=== PATIENT | male | born 1940 | race Caucasian/White ===

== ENCOUNTER 2018-10-08 20:11 | Inpatient (IN) ==
[2018-10-08 20:34] LABS: URINE SOURCE CLEAN CATCH
[2018-10-08 20:36] LABS: BILIRUBIN URINE NEGATIVE (NEGATIVE); BLOOD URINE TRACE (NEGATIVE); COLOR YELLOW; GLUCOSE URINE NEGATIVE (NEGATIVE); KETONE URINE NEGATIVE (NEGATIVE); LEUKOCYTES URINE NEGATIVE (NEGATIVE); NITRITE URINE NEGATIVE (NEGATIVE); PH URINE 5.5; PROTEIN URINE TRACE mg/dL (NEGATIVE); SP GRAVITY URINE 1.021; TURBIDITY URINE CLEAR (CLEAR); UROBILINOGEN URINE 2 mg/dL (NORMAL)
[2018-10-08 20:38] LABS: UR EPITHELIAL CELLS <10 /HPF (<10); URINE BACTERIA NEGATIVE /HPF; URINE RBC <10 /HPF (<10); URINE WBC <10 /HPF (<10)
[2018-10-09] MEDS ORDERED: PERCOCET-5 PO ONE (01:04)
[2018-10-09 04:39] LABS: BASO# 0.04 X1000 (0.0-0.2); BASO% 0.4 % (0.0-0.8); EOS# 0.13 X1000 (0.0-0.7); EOS% 1.2 % (0.0-10.0); HEMATOCRIT 43.6 % (42.0-52.0); HEMOGLOBIN 14.6 g/dL (14.0-18.0); IMM GRAN# 0.03 X1000 (0.0-0.04); IMM GRAN% 0.3 % (0.0-0.5); LYMPH# 2.03 X1000 (1.2-3.4); LYMPH% 19.4 % (20.5-51.1); MCH 28.2 PG (27-31); MCHC 33.5 g/dL (33-37); MCV 84.3 FL (81-99); MONO# 0.89 X1000 (0.11-0.59); MONO% 8.5 % (1.7-9.3); NEUT# 7.35 X1000 (1.4-6.5); NEUT% 70.2 % (42.2-75.2); PLT 185 X1000 (130-400); RBC 5.17 XMIL (4.7-6.1); RDW 13.7 % (11.5-14.5); WBC 10.47 X1000 (4.8-10.8)
[2018-10-09 04:55] LABS: AGAP 13; ALB/GLOB RATIO 1.2; ALKALINE PHOSPHATASE 58 U/L (32-122); BUN 26 mg/dL (8-22); CHLORIDE 101 mmol/L (98-107); COSMO 283; ESTIMATED GFR > 60; GLUCOSE 105 mg/dL (70-104); GOT 17 U/L (10-34); GPT 17 U/L (10-44); POTASSIUM 3.8 mmol/L (3.5-5.1); SODIUM 139 mmol/L (136-145); TCO2 25 mmol/L (25-35); TOTAL BILIRUBIN 1.13 mg/dL (0.20-1.00); TOTAL PROTEIN 7.3 g/dL (6.3-8.3)
[2018-10-09] MEDS ORDERED: ZOFRAN ODT PO ONE (05:14)
[2018-10-09 05:41] LABS: SED RATE 5 mm/hr (0-15)
--- NOTE | 2018-10-09 07:11 | PROVIDER DOCUMENTATION ---
This chart was entered by Irma Chavez Scribe, acting as scribe for Sasha Hrenandez MD. HPI-Abdominal Pain/GI Problem - General Source: patient - History of Present Illness-ABD Nature of Presenting Problems: Pt sts that he has had R lower ABD pain for the past 3 days. nausea but no vomiting. hx of hernia repair. Pt has pacemaker as well. Abdominal Pain Onset Location: reports: RLQ, periumbilical Pain Radiation: reports: no radiation Quality of Pain: reports: aching Severity in ED: reports: moderate Onset/Duration: reports: 3 days ago Timing: reports: still present Activities at Onset: reports: none Exposure to sick contacts?: No Modifying Factors: improves with: nothing Associated Symptoms: reports: nausea. denies: anxiety, chest pain, constipation, cough, diarrhea, vomiting Last BM: unsure <Sasha Hernandez - Last Filed: 10/09/18 07:10> <Juany Blake - Last Filed: 10/09/18 08:53> - General Chief Complaint: Abdominal Pain Stated Complaint: MID-STOMACH PAIN Time Seen by Provider: 10/09/18 00:36 Allergies/Adverse Reactions: Patient Allergies Allergy/AdvReac Type Severity Reaction Status Date / Time sulfamethoxazole Allergy Mild RASH Verified 12/28/17 13:59 [From Bactrim] trimethoprim [From Bactrim] Allergy Mild RASH Verified 12/28/17 13:59 Home Medications: Home Medication List Medication Instructions Recorded Confirmed Last Taken Type Aspirin [Ecotrin] 1 tab PO HS 11/29/16 01/07/18 01/01/18 History Atorvastatin Calcium [Lipitor] 20 mg PO HS 11/29/16 01/07/18 01/06/18 History Clopidogrel Bisulfate [Plavix] 75 mg PO DAILY 11/29/16 01/07/18 01/01/18 History Losartan/Hydrochlorothiazide 1 tab PO DAILY 11/29/16 01/07/18 01/06/18 History [Losartan-Hctz 50-12.5 mg Tab] Amlodipine Besylate 5 mg PO DAILY 12/28/17 01/07/18 01/06/18 07:00 History Bisoprolol [Zebeta] 5 mg PO DAILY 12/28/17 01/07/18 01/06/18 07:00 History Levofloxacin 500 mg PO DAILY 12/28/17 01/07/18 2 Days Ago History ~01/05/18 Omeprazole 20 mg PO DAILY 12/28/17 01/07/18 01/07/18 07:00 History Tamsulosin [Flomax] 0.4 mg PO DAILY 12/28/17 01/07/18 2 Days Ago History ~01/05/18 Hydrocodone/Acetaminophen [Hawley 1 each PO Q4H PRN PRN #30 tablet 01/07/18 Unknown Rx 10-325 Tablet] Review of Systems - Adult - REVIEW OF SYSTEMS - ADULT Constitutional: denies: chills, fever Eyes: reports: no symptoms reported Ears, Nose, Mouth & Throat: reports: no symptoms reported Cardiovascular: reports: no symptoms reported Respiratory: reports: no symptoms reported Gastrointestinal: reports: abdominal pain, nausea. denies: diarrhea, vomiting Genitourinary: reports: no symptoms reported Musculoskeletal: reports: no symptoms reported Integumentary: reports: no symptoms reported Neurological: reports: no symptoms reported. denies: dizziness/vertigo, headache/migraines Psychiatric: reports: no symptoms reported Endocrine: reports: no symptoms reported Hematologic/Lymphatic: reports: no symptoms reported Allergic/Immunologic: reports: no symptoms reported All Other Systems: Reviewed and Negative <Sasha Hernandez - Last Filed: 10/09/18 07:10> Past History - Adult - PAST MEDICAL HISTORY-ADULT Review of Records: reports: Old Records Reviewed, Nursing Assessment Review, Medications Reviewed, Social history reviewed & non-contributory. Major Childhood Illnesses: reports: denies history Cardiovascular: reports: HTN Respiratory: reports: denies history Gastrointestinal: reports: denies history Obstetrical/Gynecological: reports: denies history Genitourinary: reports: denies history Musculoskeletal: reports: denies history Neurological: reports: denies history Psychiatric: reports: denies history Endocrine/Immune: reports: denies history Other Conditions: reports: denies history - PRIOR SURGERIES/PROCEDURES Surgical/Procedure History: reports: CABG, other (hernia repair) - IMMUNIZATION STATUS Childhood Immunizations: See Nurse Assessment Flu Vaccine: See Nurse Assessment - SOCIAL HISTORY Smoking: quit greater than 1 year Substance Use: none/never Alcohol Use Frequency: never Living Situation: family <Sasha Hernandez - Last Filed: 10/09/18 07:10> Physical Exam-General - PHYSICAL EXAM-ADULT Initial Vital Signs Reviewed: Yes - CONSTITUTIONAL General Appearance: appears well, alert, mild distress - EYES Eyes: PERRL/EOMI - HEAD, EARS, NOSE, MOUTH & THROAT HENMT: normocephalic/atraumatic, moist mucous membranes, normal ENT inspection - NECK Neck: non-tender, full range of motion, supple, normal inspection - RESPIRATORY Respiratory: lungs clear - CARDIOVASCULAR Cardiovascular: normal peripheral pulses, regular rate, rhythm, other (PACED) - GASTROINTESTINAL (ABDOMEN) Abdominal Exam: normal bowel sounds, soft, tenderness - LYMPHATIC Lymphatic: no adenopathy - MUSCULOSKELETAL Back Exam: normal inspection, no CVA tenderness, no vertebral tenderness Extremity: normal range of motion, non-tender, normal gait, normal inspection - SKIN Integumentary: normal color, warm/dry - NEUROLOGIC Neurologic: grossly normal - PSYCHIATRIC Psych/Mental Status: normal mood/affect, normal thought content, normal thought process, oriented x 3 <Sasha Hernandez - Last Filed: 10/09/18 07:10> Progress - PLAN OF CARE/RESULTS Progress/Plan/Lab Results: Vital Signs - 8 hr 10/08/18 20:16 10/08/18 23:53 Temperature 97.9 F Pulse Rate 61 58 L Respiratory Rate 18 18 Blood Pressure 145/91 123/83 O2 Sat by Pulse Oximetry 99 97 Laboratory Results - last 24 hr 10/08/18 20:30 Urine Source CLEAN CATCH Urine Color YELLOW Urine Turbidity CLEAR Urine pH 5.5 Ur Specific [place] 1.021 Urine Protein TRACE A Ur Glucose (Stick) NEGATIVE Ur Ketones (Stick) NEGATIVE Urine Blood TRACE A Urine Nitrite NEGATIVE Urine Bilirubin NEGATIVE Urobilinogen Dipstick 2 A Urine Leukocytes NEGATIVE Urine WBC (Auto) <10 Urine RBC (Auto) <10 U Epithel Cells (Auto) <10 Urine Bacteria (Auto) NEGATIVE Orders Category Date Time Status US ABDOMEN-COMPLETE [US] Stat Exams 10/09/18 01:02 Ordered CBC WITH ELECTRONIC DIFF [HEME] Stat Lab 10/09/18 00:36 Uncollected COMPREHENSIVE METABOLIC PANEL [CHEM] Stat Lab 10/09/18 00:36 Uncollected SED RATE [HEME] Stat Lab 10/09/18 01:04 Uncollected UA NIMS W/REFLEX CULT [URINALYSIS] Stat Lab 10/08/18 20:30 Completed Oxycodone/APAP 5 mg/325 mg [Percocet-5] Med 10/09/18 01:04 Discontinued 1 each PO NOW ONE Result Diagrams: 10/09/18 04:15 10/09/18 04:15 - REASSESSMENT Reassessment #1 Time Reassessed: 06:03 (called to for sbo vs ileus. Dr. Jordan coming to evaluate pt. ) - CHANGE OF SHIFT REPORT (ED Provider) 1 Report Given and Care Transferred to:: Dr. Blake Time of Transfer: 07:11 Items Pending: Physician Consult/Arrival (Dr. Jordan) <Sasha Hernandez - Last Filed: 10/09/18 07:10> - PLAN OF CARE/RESULTS Progress/Plan/Lab Results: Vital Signs - 8 hr 10/08/18 23:53 10/09/18 05:13 10/09/18 05:30 Pulse Rate 58 L Respiratory Rate 18 Blood Pressure 123/83 158/107 O2 Sat by Pulse Oximetry 97 98 93 L 10/09/18 06:20 Gastric Occult Blood - Final Emesis Laboratory Results - last 24 hr 10/08/18 10/09/18 10/09/18 20:30 04:15 04:15 WBC 10.47 RBC 5.17 Hgb 14.6 Hct 43.6 MCV 84.3 MCH 28.2 MCHC 33.5 RDW Std Deviation 13.7 Plt Count 185 MPV 11.0 H Immature Gran % (Auto) 0.3 Neut % (Auto) 70.2 Lymph % (Auto) 19.4 L Will % (Auto) 8.5 Eos % (Auto) 1.2 Baso % (Auto) 0.4 Immature Gran # (Auto) 0.03 Neut # (Auto) 7.35 H Lymph # (Auto) 2.03 Will # (Auto) 0.89 H Eos # (Auto) 0.13 Baso # (Auto) 0.04 ESR 5 Sodium 139 Potassium 3.8 Chloride 101 Carbon Dioxide 25 Anion Gap 13 BUN 26 H Creatinine 1.0 Estimated GFR/1.73 m2 > 60 BUN/Creatinine Ratio 26 Glucose 105 H Calculated Osmolality 283 Calcium 9.0 Total Bilirubin 1.13 H AST 17 ALT 17 Alkaline Phosphatase 58 Total Protein 7.3 Albumin 4.0 Globulin 3.3 Albumin/Globulin Ratio 1.2 Urine Source CLEAN CATCH Urine Color YELLOW Urine Turbidity CLEAR Urine pH 5.5 Ur Specific [place] 1.021 Urine Protein TRACE A Ur Glucose (Stick) NEGATIVE Ur Ketones (Stick) NEGATIVE Urine Blood TRACE A Urine Nitrite NEGATIVE Urine Bilirubin NEGATIVE Urobilinogen Dipstick 2 A Urine Leukocytes NEGATIVE Urine WBC (Auto) <10 Urine RBC (Auto) <10 U Epithel Cells (Auto) <10 Urine Bacteria (Auto) NEGATIVE Orders Category Date Time Status NG/OG/Feeding Tube Insertion ORDERED Care 10/09/18 06:[address] ABDOMEN/PELVIS W/O CONTRAST [CT] Stat Exams 10/09/18 04:38 Taken US ABDOMEN-COMPLETE [US] Stat Exams 10/09/18 01:02 Taken CBC WITH ELECTRONIC DIFF [HEME] Stat Lab 10/09/18 04:15 Completed COMPREHENSIVE METABOLIC PANEL [CHEM] Stat Lab 10/09/18 04:15 Completed OCCULT BLOOD NON-FECES Stat Lab 10/09/18 06:20 Completed SED RATE [HEME] Stat Lab 10/09/18 04:15 Completed UA NIMS W/REFLEX CULT [URINALYSIS] Stat Lab 10/08/18 20:30 Completed Ondansetron Odt [Zofran Odt] Med 10/09/18 05:14 Discontinued 4 mg PO NOW ONE Oxycodone/APAP 5 mg/325 mg [Percocet-5] Med 10/09/18 01:04 Discontinued 1 each PO NOW ONE Result Diagrams: 10/09/18 04:15 10/09/18 04:15 - REASSESSMENT Reassessment #1 Reassessment Comment: The patient seen by me at this time. Discussed with him and his . - CONSULTS/PCP/HOSPITALIST Notification #1 *Consult/PCP/Hospitalist*: sol Time Discussed: 08:52 Consult Disposition: Will see in ED, Admit <Juany Blake - Last Filed: 10/09/18 08:53> Departure <Sasha Hernandez - Last Filed: 10/09/18 07:10> - Departure Date of Disposition Decision: 10/09/18 Time of Disposition Decision: 08:52 Certified Medical Emergency: Emergent - Critical Care Note This patient required my direct & personal management of CC.: No <Juany Blake - Last Filed: 10/09/18 08:53> - Departure DIAGNOSIS: SBO (small bowel obstruction) Disposition: ADMITTED INPATIENT 09 Condition: Fair Referrals and Follow-Ups: Amador Jeffers MD [Primary Care Provider] - Attestation - Physician/ JAIMIE Attestation Patient care was provided by Advanced Practice Provider:: No The physician spent face to face time with patient:: Yes Advanced Practice Provider documentation review:: Supervising physician onsite and consulted in the evaluation and care of this patient. The physician did have a face to face encounter with the patient. <Sasha Hernandez - Last Filed: 10/09/18 07:10> - Physician/ JAIMIE Attestation The physician spent face to face time with patient:: Yes Advanced Practice Provider documentation review:: Supervising physician onsite and consulted in the evaluation and care of this patient. The physician did have a face to face encounter with the patient. <Juany Blake - Last Filed: 10/09/18 08:53> This chart was documented by the indicated scribe, (Irma Chavez, Brandi) and accurately reflects the services I performed and decisions made by me, Sasha Hernandez MD, as attested by the provider's signature.
--- NOTE | 2018-10-09 07:49 | Diag Imaging Result Doc PS360 ---
EXAM: CT ABDOMEN/PELVIS W/O CONTRAST HISTORY: appencitis, hernia repair hx TECHNIQUE: CT abdomen and pelvis without contrast COMPARISON: None. FINDINGS: The gallbladder has been removed. Normal noncontrasted liver, spleen, pancreas, and adrenal glands. There are likely small renal cysts. No renal stones. No hydronephrosis. Aortic iliac stent repair and a small abdominal aortic aneurysm. There are multiple air and fluid distended loops of small bowel. The distal small bowel loops are not dilated. There are scattered colonic diverticula. The urinary bladder is minimally distended. Trace free fluid in the pelvis. There is fluid in the inguinal canals. IMPRESSION: 1.Small bowel obstruction 2.Cholecystectomy 3.Abdominal aortic aneurysm repair 4.Trace fluid in the pelvis and in each inguinal canal 5.Diverticulosis 6.A pulmonary report was given at 5:44 AM This exam was performed using automated exposure control, adjustment of mA or kV according to patient size, and/or use of iterative reconstruction technique. Electronically signed by Jose Delgadillo 10/09/2018 7:47 AM
--- NOTE | 2018-10-09 08:22 | Diag Imaging Result Doc PS360 ---
EXAM: US ABDOMEN-COMPLETE HISTORY: appendicitis, hernia repair infeciton TECHNIQUE: Abdominal ultrasound COMPARISON: None. FINDINGS: No abdominal aortic aneurysm. The pancreas is obscured. There is fatty infiltration of the liver. The inferior vena cava is poorly seen. The several small renal cysts. No hydronephrosis. The common bile duct measures 4 mm. The gallbladder is not present. The spleen is not enlarged. No ascites. IMPRESSION: 1.Fatty infiltration of the liver 2.Cholecystectomy 3.Small renal cysts 4.A preliminary report was given at 3:49 AM Electronically signed by Jose Delgadillo 10/09/2018 8:20 AM
--- NOTE | 2018-10-09 09:37 | GENERAL SURGERY CONSULTATION ---
DATE: 10/09/2018 HISTORY OF PRESENT ILLNESS: This is an 78-year-old gentleman who presents with a several-day history of colicky abdominal discomfort, nausea, vomiting, decrease in bowel movements. He came to the ER, where CT scan was obtained that suggested bowel obstruction. He says he is having flatus, but he has even vomited in the emergency department, and has had decreased p.o. intake over this period of time. Weight has been stable. He is a very functional alexa. He does have coronary disease with coronary artery bypass graft and subsequent coronary stents, on aspirin and Plavix. Dr. Chaudhry, in December, repaired an incarcerated right inguinal hernia. He also has a history of a left inguinal hernia and open cholecystectomy in the past. PAST MEDICAL HISTORY: Coronary artery disease, hypertension, gastroesophageal reflux, BPH. PAST SURGICAL HISTORY: Open cholecystectomy, bilateral inguinal hernia repairs most recently in December of last year for incarcerated hernia. He has had an abdominal aortic aneurysm repair endovascularly. SOCIAL HISTORY: No current tobacco, alcohol, drugs. He is very active. He has family members here with him. FAMILY HISTORY: Reviewed and noncontributory. REVIEW OF SYSTEMS: Ten-point negative. PHYSICAL EXAMINATION: Vital Signs: He is afebrile, pulse 58, blood pressure 158/107, oxygen saturation 93%. General: He is elderly, but in no acute distress. HEENT: There is no scleral icterus. No cervical mass. Cardiovascular: Normal rate. Pulmonary: No increased work of breathing. Abdomen: Mildly distended, but soft throughout. He has no evidence of inguinal hernia bilaterally in a right subcostal incision. Psychiatric: Appropriate affect. Neurologic: No gross deficits. Musculoskeletal: Normal muscle tone throughout. Peripheral Vascular: No lower extremity edema. IMAGING AND LABORATORY DATA: White count is 10, hematocrit 43, platelets 185,000. Creatinine is 1.0. Bilirubin is mildly elevated at 1.13. AST, ALT, alkaline phosphatase are normal. Albumin is 4.0. Urinalysis shows trace blood. I reviewed a CT scan and his abdominal ultrasound. ASSESSMENT AND PLAN: This is an 78-year-old gentleman with a bowel obstruction. His exam is benign, and no evidence of bowel compromise on CT scan. He has numerous medical problems, including coronary disease as well as current antiplatelet therapy with aspirin and Plavix. Will place a nasogastric tube. Continue tube decompression, intravenous hydration. He is going to be admitted to the Medicine Service. Will follow along surgically. Hopefully, he will resolve this without surgical intervention. I do not see any evidence of recurrent hernia that is contributing to this. I discussed the plan in detail with the family. We did discuss the possibility of requiring an operation if he were to deteriorate. cc: Duncan Jordan MD
--- NOTE | 2018-10-09 10:22 | HISTORY AND PHYSICAL ---
HISTORY OF PRESENT ILLNESS: Mr. Guevara, an 78-year-old patient of Dr. Amador Jeffers. This is Wednesday. He said on he started noticing he had a little more abdominal distention, uncomfortable, liquid bowel movements. He has been able to get some food and liquids down, but became more uncomfortable. Came into the emergency room and it appears he has a small bowel obstruction. NG tube was placed. I will plan on giving him some IV fluids. PAST MEDICAL HISTORY: He has had inguinal hernia repair. He has had an abdominal aortic aneurysm repair, I think that was 7 years ago. He has gastroesophageal reflux disease, hypertension, hypercholesterolemia. FAMILY HISTORY: Denies any significant medical problems. He does not report any heart disease. SOCIAL HISTORY: No alcohol or tobacco. MEDICATION LIST: Plavix 75 mg a day, amlodipine 5 mg a day, atorvastatin 20 mg a day, losartan- hydrochlorothiazide combination 50/12.5 one a day, bisoprolol 5 mg daily, omeprazole 20 mg a day, Ecotrin 325 mg a day. PAST SURGICAL HISTORY: Coronary artery bypass grafting, three-vessel bypass. He has had open cholecystectomy and inguinal hernia repair on the left. REVIEW OF SYSTEMS: General: No weight gain or loss, no fever or chills. HEENT: Unremarkable. No change in visual or hearing acuity. Neck: No neck pain. No cervical adenopathy. No history of thyroid problems. Respiratory: No increased work of breathing or dyspnea. Cardiovascular: No chest pain or tachy palpitation. GI/: As mentioned above. No gross hematuria or dysuria. Does have a history of benign prostatic hypertrophy, but no significant urinary tract symptoms reported. WEIGHT/HEIGHT: 165 pounds. 5 feet 8 inches. PHYSICAL EXAMINATION: VITALS: Temperature 97.9 degrees, pulse 58, respirations 18. O2 saturation was 97%. EYES: Pupils are equal and round. LUNGS: Clear in all lung conner. CARDIOVASCULAR: Regular rhythm and rate without murmur or S3. ABDOMEN: Soft. Abdomen was not distended, but diminished bowel sounds. SKIN: Warm and dry. EXTREMITIES: No pedal edema. LABORATORY: White count 10,470, hematocrit 43, platelet count 185,000. Sodium 139, potassium 3.8, chloride 101, BUN 26, creatinine 1, AST 17, ALT 17, alkaline phosphatase was 58. Urinalysis unremarkable. IMAGING: Abdominal and pelvic CT: Small bowel obstruction, status post cholecystectomy, abdominal aortic aneurysm repair, trace fluid in the pelvis and in each inguinal canal, diverticulosis. Abdominal ultrasound: Fatty infiltration of liver, cholecystectomy, small renal cyst. ASSESSMENT AND PLAN: 1. Small-bowel obstruction. NG tube in place. Give him IV fluids and hold him NPO except for his medications and hopefully Dr. Jordan is following, General Surgery. Hopefully, this will open up. I suspect scar tissue from his previous surgeries. 2. Hypertension, aware. We will watch blood pressure. 3. Hypercholesterolemia. 4. Peripheral vascular disease, status post abdominal aortic aneurysm repair. 5. Coronary artery disease, status post CABG. We will check his thyroid function, B12 while he is here. Follow electrolytes closely. Note no sign of anemia. cc: Denys Sears MD
--- NOTE | 2018-10-09 10:44 | Diag Imaging Result Doc PS360 ---
EXAM: CHEST-1 VIEW HISTORY: SBO TECHNIQUE: Chest abdomen single view COMPARISON: None. FINDINGS: A nasogastric tube overlies the stomach. There are surgical clips in the right upper quadrant. There are multiple air distended loops of small bowel. There is air and stool in the colon. Aortic iliac stent. IMPRESSION: Nasogastric tube overlies the stomach. Electronically signed by Jose Delgadillo 10/09/2018 10:41 AM
[2018-10-09] MEDS ORDERED: ZOFRAN IV PRN (10:47)
[2018-10-09] MEDS ORDERED: TYLENOL PO PRN (10:47)
[2018-10-09] MEDS: NS 1,000 ML IV SCH (12:35)
[2018-10-09] MEDS ORDERED: ASPIRIN EC PO SCH (21:00)
[2018-10-10] MEDS: NS 1,000 ML IV SCH (00:19)
[2018-10-10] MEDS: SODIUM CHLORIDE 0.9% INJ SCH ×3 (00:19→20:58)
[2018-10-10] MEDS: PROTONIX IV SCH ×3 (00:19→20:58)
--- NOTE | 2018-10-10 06:31 | GENERAL SURGERY PROGRESS NOTE ---
DATE: 10/10/2018 SUBJECTIVE: Patient seems to be doing okay. He has passed flatus. He is not sick to his stomach. OBJECTIVE: Vital Signs: Patient is currently afebrile. His vital signs stable. General: No acute distress. HEENT: Normocephalic, atraumatic. Pupils equal, round, reactive to light. Mucous membranes moist. Oropharynx benign. Neck: Supple trachea midline. Cardiovascular: Regular rate and rhythm. Lungs: Grossly clear. Abdomen: Soft, nondistended. Extremities: Moves all extremities. Neurologic: Grossly intact. Skin: No signs of jaundice. Vascular: All extremities perfused. LABORATORY: None this morning as of yet. Reviewed labs from yesterday. ASSESSMENT AND PLAN: An 78-year-old gentleman with small bowel obstruction. 1. Small bowel obstruction. At this time, seems to be resolving. We will remove his nasogastric tube and start him on a clear liquid diet, hopefully continue to advance him. 2. Multiple medical comorbidities currently being managed by the hospitalist service. cc: MD Amador Moreno MD
[2018-10-10 07:09] LABS: BASO# 0.02 X1000 (0.0-0.2); BASO% 0.2 % (0.0-0.8); EOS# 0.08 X1000 (0.0-0.7); EOS% 0.8 % (0.0-10.0); HEMOGLOBIN 13.5 g/dL (14.0-18.0); IMM GRAN# 0.03 X1000 (0.0-0.04); IMM GRAN% 0.3 % (0.0-0.5); LYMPH% 16.1 % (20.5-51.1); MCH 28.7 PG (27-31); MCHC 33.8 g/dL (33-37); MCV 85.1 FL (81-99); MONO# 1.01 X1000 (0.11-0.59); MONO% 10.1 % (1.7-9.3); MPV 10.9 FL (7.4-10.4); NEUT# 7.22 X1000 (1.4-6.5); NEUT% 72.5 % (42.2-75.2); PLT 164 X1000 (130-400); RDW 13.5 % (11.5-14.5); WBC 9.96 X1000 (4.8-10.8)
[2018-10-10 07:25] LABS: AGAP 13; ALB/GLOB RATIO 1.2; ALBUMIN 3.7 g/dL (3.5-5.0); ALKALINE PHOSPHATASE 61 U/L (32-122); BUN 24 mg/dL (8-22); CALCIUM 8.5 mg/dL (8.8-10.2); CHLORIDE 104 mmol/L (98-107); COSMO 287; CREATININE 0.9 mg/dL (0.7-1.2); ESTIMATED GFR > 60; GLUCOSE 92 mg/dL (70-104); GOT 17 U/L (10-34); GPT 15 U/L (10-44); MAGNESIUM 1.9 mg/dL (1.5-2.7); POTASSIUM 3.3 mmol/L (3.5-5.1); SODIUM 142 mmol/L (136-145); TCO2 25 mmol/L (25-35); TOTAL BILIRUBIN 1.13 mg/dL (0.20-1.00); TOTAL PROTEIN 6.8 g/dL (6.3-8.3)
[2018-10-10] MEDS ORDERED: FLOMAX PO SCH (09:00)
[2018-10-10] MEDS ORDERED: PLAVIX PO SCH (09:00)
[2018-10-10] MEDS ORDERED: PRILOSEC PO SCH (09:00)
[2018-10-10] MEDS ORDERED: NORVASC PO SCH (09:00)
[2018-10-10] MEDS ORDERED: ZEBETA PO SCH (09:00)
[2018-10-10] MEDS: HYZAAR 50/12.5 MG PO SCH (12:40)
[2018-10-11 05:20] VITALS: BP 128/57
--- NOTE | 2018-10-11 06:48 | GENERAL SURGERY PROGRESS NOTE ---
DATE: 10/11/2018 SUBJECTIVE: Patient seems to be doing okay. He tolerated his diet. He is having bowel movements. OBJECTIVE: Vital Signs: Patient is currently afebrile. His vital signs are stable. General: No acute distress. HEENT: Normocephalic, atraumatic. Pupils equal, round, reactive to light. Mucous membranes moist. Oropharynx benign. Neck: Supple, trachea midline. Cardiovascular: Regular rate and rhythm. Lungs: Grossly clear. Abdomen: Soft, nondistended, nontender. Bowel sounds auscultated. Extremities: Moves all extremities. Neurologic: Grossly intact. Skin: No signs of jaundice. Vascular: All extremities perfused. LABORATORY: Reviewed from yesterday. ASSESSMENT AND PLAN: An 78-year-old gentleman with small bowel obstruction. 1. Small bowel obstruction. This time it seems to be resolved. He is on a GI soft diet. I think he can be discharged here in the near future. 2. Multiple medical comorbidities currently being managed by his primary care physician. cc: MD Amador Moreno MD
[2018-10-11] MEDS ORDERED: ZEBETA PO SCH (09:00)
--- NOTE | 2018-10-11 09:35 | DISCHARGE SUMMARY ---
ADMISSION DATE: 10/09/2018 DISCHARGE DATE: 10/11/2018 FINAL DIAGNOSES: 1. Acute small bowel obstruction due to adhesions. 2. History of coronary artery disease and hypertension. PRESENT ILLNESS: Mr. Guevara is an 78-year-old gentleman who presented to the emergency room with 24- 48 hours of colicky abdominal discomfort which started in the right lower quadrant near the site of his recent inguinal hernia repair. The pain then moved to the periumbilical region and was described as a burning pain. He vomited in the emergency department. Initial plain films were not very helpful, but CT scan of the abdomen showed multiple dilated loops of small bowel typical for small bowel obstruction. PHYSICAL EXAMINATION: VITAL SIGNS: Physical examination revealed unremarkable vital signs. CARDIAC: Exam was unremarkable. CHEST: No increased work of breathing. ABDOMEN: Soft. No evidence of hernias or other abnormalities. PSYCHIATRIC: He was alert and cooperative. DATA BASE: White blood count 10,000, hematocrit 43%. Liver enzymes are normal. Albumin is normal. HOSPITAL COURSE: He had an NG tube placed to low intermittent Gomco suction and the following morning felt much improved. His NG tube was removed and his diet was advanced to clear liquids. He tolerated this well throughout the day yesterday and last night was changed to soft GI diet. He has had breakfast today, has had several bowel movements and has been ambulatory around the halls here without difficulty. His bowel sounds are normal and he has had 2 bowel movements in the last 24 hours. He is discharged today in improved condition and is to return to my office in 8-14 days for transition of care visit. He is aware that the bowel obstruction could recur and to return to the hospital if he has significant abdominal pain or vomiting. DISCHARGE MEDICATIONS: 1. Aspirin 81 mg daily. 2. Clopidogrel 75 mg daily. 3. Atorvastatin 40 mg at bedtime. 4. Bisoprolol 10 mg daily. 5. Losartan HCT 50/12.5 one daily. 6. Omeprazole 20 mg daily. cc: Amador Jeffers MD
[2018-10-11] MEDS: HYZAAR 50/12.5 MG PO SCH (09:39)
--- NOTE | 2018-10-12 15:10 | Carotid Study ---
DATE: 10/10/2018 PROCEDURE: Carotid duplex imaging. REFERRING PHYSICIAN: Denys Sears MD. INTERPRETING PHYSICIAN: Gaudencio Limon MD. TECH: [place]. INDICATIONS: Coronary artery disease. OBSERVED DATA RIGHT LEFT Brachial Blood Pressure Carotid Pulse Bruits: Carotid/Sub DIAGRAM OF ULTRASOUND IMAGING R L RIGHT INT EXT INT EXT LEFT Reji (cm/s) Reji (cm/s) Subclavian 73/0 Subclavian 83/0 CCA Proximal 84/15 CCA Proximal 95/14 CCA Distal 82/17 CCA Distal 102/17 Bulb 87/16 Bulb 76/14 ICA Proximal 83/17 ICA Proximal 70/13 ICA Mid 77/22 ICA Mid 70/22 ICA Distal 100/26 ICA Distal 88/23 ECA 108/11 ECA 98/16 Vertebral 38/12 Vertebral 43/8 ICA/CCA Ratio 1.2 ICA/CCA Ratio 0.9 % Stenosis 0-39% % Stenosis 0-39% FINDINGS: There is minimal atherosclerotic changes in the common and internal carotid arteries bilaterally. There are no ulcerations or significant stenoses present. There is antegrade vertebral flow bilaterally. PHYSICIAN INTERPRETATION: Unremarkable carotid imaging study. cc: MD Amador Fontaine MD
== END 2018-10-11 10:21 | disposition home or self-care (01) | DRG 390 ==
LOC: ED 20:11 → 4N 10-09 10:19
PROVIDERS: ADMIT Internal Medicine; ATTEND Internal Medicine
CPT/HCPCS: 71010; 71045; 74176; 76700; 80053; 81001; 82271; 83735; 84443; 84484; 85025; 85651; 93880; 99285; A9270; C9113; J7030; S0164